=== PATIENT | female | born 1960 | race Caucasian/White ===

== ENCOUNTER → 2016-07-23 | Outpatient (REF) | payer OTHER ==
[~2016-07-23] MED LIST: CALC500T36 PO; EFFE75CA75 PO; LEVO150T7 PO; MULTCAP PO
[2016-07-23 12:27] LABS: FREE T4 1.02 NG/DL (0.76-1.46)
== END ==
LOC: M LABDRAW1 10:40
PROVIDERS: ATTEND Internal Medicine Endocrinology, Diabetes & Metabolism
DX: C73 Malignant neoplasm of thyroid gland (principal)

== ENCOUNTER → 2017-04-19 | Outpatient (REF) | payer OTHER ==
[2017-04-19 18:29] LABS: FREE T4 1.27 NG/DL (0.76-1.46); THYROID STIMULATING HORMONE 0.258 uIU/ML (0.358-3.740)
== END ==
LOC: M LABDRAWC 13:44
DX: E89.0 Postprocedural hypothyroidism (principal)

== ENCOUNTER → 2017-06-20 | Outpatient (REF) | payer OTHER ==
[2017-06-20 17:10] LABS: FREE T4 1.27 NG/DL (0.76-1.46); THYROID STIMULATING HORMONE 0.739 uIU/ML (0.358-3.740)
== END ==
LOC: M LABDRAWC 16:13
DX: E89.0 Postprocedural hypothyroidism (principal)

== ENCOUNTER → 2018-03-27 | Outpatient (REF) | payer OTHER ==
[~2018-03-27] MED LIST changes: +EFFE75CA2 PO; -EFFE75CA75 PO
== END ==
LOC: M SFHCPLAZ 17:43
PROVIDERS: ATTEND Dermatology
DX: C44.41 Basal cell carcinoma of skin of scalp and neck (principal); L57.0 Actinic keratosis

== ENCOUNTER → 2018-05-20 | Outpatient (REF) | payer OTHER | LOC: M SFHCPLAZ 09:56 | PROVIDERS: ATTEND Dermatology | DX: C44.41 Basal cell carcinoma of skin of scalp and neck (principal) ==

== ENCOUNTER → 2018-07-04 | Outpatient (REF) | payer OTHER ==
[~2018-07-04] MED LIST changes: +CALC12504 PO; -CALC500T36 PO
[2018-07-04 17:19] LABS: CHOLESTEROL RISK RATIO 4.2 (<5)
== END ==
LOC: M LABDRAWC 16:18
PROVIDERS: ATTEND Family Medicine
DX: E78.49 Other hyperlipidemia (principal)

== ENCOUNTER → 2018-07-04 | Outpatient (REF) | payer OTHER ==
[2018-07-04 17:26] LABS: FREE T4 1.26 NG/DL (0.76-1.46); THYROID STIMULATING HORMONE 0.207 uIU/ML (0.358-3.740)
== END ==
LOC: M LABDRAWC 16:16
PROVIDERS: ATTEND Internal Medicine Endocrinology, Diabetes & Metabolism
DX: E89.0 Postprocedural hypothyroidism (principal)

== ENCOUNTER → 2020-01-07 | Outpatient (REF) | payer OTHER ==
[~2020-01-07] MED LIST changes: -CALC12504 PO; +CALC500T61 PO
[2020-01-07 16:51] LABS: FREE T4 1.08 NG/DL (0.76-1.46); THYROID STIMULATING HORMONE 0.419 uIU/ML (0.358-3.740)
== END ==
LOC: M LABDRAWC 15:43
PROVIDERS: ATTEND Nurse Practitioner Family
DX: E89.0 Postprocedural hypothyroidism (principal)

== ENCOUNTER → 2020-03-28 | Outpatient (REF) | payer OTHER | LOC: M LAB REF 17:17 | PROVIDERS: ATTEND Dermatology | DX: D49.2 Neoplasm of unspecified behavior of bone, soft tissue, and skin (principal) ==

== ENCOUNTER → 2020-05-09 | Outpatient (REF) | payer OTHER | LOC: M LAB REF 17:18 | PROVIDERS: ATTEND Dermatology | DX: D49.2 Neoplasm of unspecified behavior of bone, soft tissue, and skin (principal); L94.2 Calcinosis cutis ==

== ENCOUNTER → 2021-11-03 | Outpatient (REF) | payer OTHER, BC | LOC: M SFHCDERM 17:07 | PROVIDERS: ATTEND Nurse Practitioner Family | DX: L57.0 Actinic keratosis (principal) ==

== ENCOUNTER → 2022-03-28 | Outpatient (REF) | payer OTHER, BC ==
[2022-03-28 18:06] LABS: BASO % 0.6 % (0.0-1.0); EOS # 0.1 10^3/uL (0.0-0.5); EOS % 1.7 % (0.0-3.0); HEMOGLOBIN 14.7 g/dl (12.0-15.5); LYMPH # 2.2 10^3/uL (1.5-5.0); LYMPH % 34.1 % (24.0-44.0); MEAN CORPUSCULAR HEMOGLOBIN 29.3 pg (27.0-33.0); MEAN CORPUSCULAR VOLUME 91.8 fl (80.0-96.0); MONO # 0.5 10^3/uL (0.0-0.8); NEUTROPHILS # 3.6 10^3/uL (1.5-8.5); NEUTROPHILS % 56.4 % (36.0-66.0); PLATELET COUNT, AUTOMATED 254 10^3/uL (150-450); RED BLOOD COUNT 5.01 10^6/uL (4.00-5.40); WHITE BLOOD COUNT 6.4 10^3/uL (4.0-10.0)
[2022-03-28 18:34] LABS: ALKALINE PHOSPHATASE 47 U/L (46-116); ALT/SGPT 46 U/L (7.0-40); AST/SGOT 23 U/L (<34); BILIRUBIN,TOTAL 0.7 MG/DL (0.3-1.2); BLOOD UREA NITROGEN 19 MG/DL (9-23); CALCIUM LEVEL 9.4 MG/DL (8.3-10.6); CARBON DIOXIDE LEVEL 29 MMOL/L (20-31); CHLORIDE LEVEL 105 MMOL/L (98-107); CHOLESTEROL LEVEL 246 MG/DL (<200); CREATININE FOR GFR 0.74 MG/DL (0.55-1.30); GLOMERULAR FILTRATION RATE > 60.0 (>45); GLUCOSE, FASTING 86 MG/DL (74-106); HDL CHOLESTEROL 57.2 MG/DL (>40); LDL CHOLESTEROL 158.8 MG/DL (<100); NON-HDL-C 189 MG/DL; POTASSIUM SERUM 4.1 MMOL/L (3.5-5.1); SODIUM LEVEL 140 MMOL/L (136-145); TOTAL PROTEIN 7.1 G/DL (5.7-8.2); TRIGLYCERIDES LEVEL 150 MG/DL (<150)
[2022-03-28 18:35] LABS: THYROID STIMULATING HORMONE 0.297 uIU/ML (0.55-4.78)
== END ==
LOC: M LABDRAWC 17:02
PROVIDERS: ATTEND Family Medicine
DX: Z00.00 Encounter for general adult medical examination without abnormal findings (principal); E03.9 Hypothyroidism, unspecified; E78.49 Other hyperlipidemia

== ENCOUNTER → 2022-08-21 | Outpatient (REF) | payer OTHER, BC ==
[2022-08-21 19:14] LABS: CALCIUM LEVEL 9.3 MG/DL (8.3-10.6)
[2022-08-21 19:17] LABS: FREE T4 1.28 NG/DL (0.89-1.76); THYROID STIMULATING HORMONE 0.499 uIU/ML (0.55-4.78)
[2022-08-21 19:18] LABS: TOTAL 25(OH) VITAMIN D 34.2 NG/ML (20.0-100.0)
[2022-08-24 09:51] LABS: CREATININE FOR GFR 0.78 MG/DL (0.55-1.30); GLOMERULAR FILTRATION RATE > 60.0 (>45)
== END ==
LOC: M LABDRAWC 17:31
PROVIDERS: ATTEND Nurse Practitioner Family
DX: E89.0 Postprocedural hypothyroidism (principal); N95.1 Menopausal and female climacteric states